=== PATIENT | male | born 1960 | race Caucasian/White ===

== ENCOUNTER 2018-04-03 06:30 | Day surgery (SDC) | payer OTHER ==
[2018-04-02 13:31] VITALS: BMI 46.0
--- NOTE | 2018-04-03 18:02 | OP ---
DATE OF PROCEDURE: 04/03/2018 PROCEDURE: Colonoscopy. PREPROCEDURE DIAGNOSES: Prior history of adenomatous polyps on colonoscopy in 2007 and hyperplastic polyps in 07/2012. POSTPROCEDURE DIAGNOSIS: Internal hemorrhoids, otherwise normal colonoscopy. RECOMMENDATIONS: Repeat colonoscopy in 5 years for prior history of polyps. ANESTHESIA: TIVA. PROCEDURE IN DETAIL: After the patient was informed of the risks, benefits, and possible complicatio ns of endoscopy including perforation, bleeding, reactions to medication and aspiration, informed con sent was obtained. The patient was brought to the endoscopy suite where he was sedated in gradual fa shion. Once he was comfortable, rectal examination was performed. The endoscope was advanced throug h anal canal through the colon and cecum which was identified by the ileocecal valve and appendiceal orifice. The prep was very good. Withdrawal time was 10 minutes. No polyps or masses were seen. I n retroflexed views in the rectum, there was a prominent internal hemorrhoids with some mild inflamma tion. The scope was then returned to forward position. The colon was desufflated and the scope was removed. The patient tolerated the procedure well without complications.
== END 2018-04-03 10:06 | disposition home or self-care (01) ==
LOC: SDC 06:30
PROVIDERS: ATTEND Internal Medicine Gastroenterology
PROC: 0DJD8ZZ Inspection of Lower Intestinal Tract, Via Natural or Artificial Opening Endoscopic (ICD-10-PCS; principal; 2018-04-03)
DX: Z12.11 Encounter for screening for malignant neoplasm of colon (principal); Z86.010 Personal history of colon polyps

== ENCOUNTER 2019-01-01 07:07 | Outpatient (CLI) | payer OTHER ==
--- NOTE | 2019-01-01 08:13 | ULT ---
ULTRASOUND TESTICULAR WITH DOPPLER: Date: 01/01/19 HISTORY: Pain. Hernia. COMPARISON: None. FINDINGS: Real-time Clemens scale with color Doppler and spectral analysis of the testicles performed. The skin of the scrotum is markedly thickened and symmetric over both testicles. The echotexture of both testicles is normal. Adequate vascularity. No significant hydrocele. Both epididymides are normal. No evidence for inguinal hernia. IMPRESSION: 1. Markedly thickened scrotal skin. Normal appearance of the testicles. 2. No evidence for inguinal hernia. POS: [facility]
== END 2019-01-01 07:08 | disposition home or self-care (01) ==
LOC: SCSULT 07:07
PROVIDERS: ATTEND Internal Medicine
DX: Q55.9 Congenital malformation of male genital organ, unspecified (principal)
CPT/HCPCS: 76870; 93976

== ENCOUNTER 2019-02-06 07:52 | Day surgery (SDC) | payer OTHER ==
[2019-02-05 14:07] VITALS: BMI 46.7
[2019-02-06] MEDS ORDERED: Bupivacaine/Epinephrine 0.25% 30 ML VIAL ONE (11:23)
[2019-02-06] MEDS ORDERED: Fentanyl 100 MCG/2 ML VIAL ONE ×3 (11:27→13:56)
[2019-02-06] MEDS ORDERED: PROPOFOL 200 MG/20 ML VIAL ONE (15:18)
[2019-02-06] MEDS ORDERED: ePHEDrine 50 MG/ML VIAL ONE (15:18)
[2019-02-06] MEDS ORDERED: Glycopyrrolate 0.2 MG/ML 5 ML SYRINGE ONE (15:18)
[2019-02-06] MEDS ORDERED: Dexamethasone 20 MG/5 ML VIAL ONE (15:18)
[2019-02-06] MEDS ORDERED: Lidocaine 1% PF 5 ML VIAL ONE (15:18)
[2019-02-06] MEDS ORDERED: PHENYLEPHRINE-NS 100 MCG/ML 10 ML SYRINGE ONE (15:18)
[2019-02-06] MEDS ORDERED: Ondansetron PF 4 MG/2 ML Vial ONE (15:18)
[2019-02-06] MEDS ORDERED: Rocuronium Bromide 10 MG/ML (10ML VIAL) ONE (15:18)
--- NOTE | 2019-02-07 09:15 | OP ---
DATE OF PROCEDURE: 02/06/2019 PREOPERATIVE DIAGNOSIS: Left inguinal hernia. POSTOPERATIVE DIAGNOSIS: Left inguinal hernia. PROCEDURE PERFORMED: Da Robbin laparoscopic left inguinal hernia repair with mesh. ANESTHESIA: General. ESTIMATED BLOOD LOSS: Minimal. COMPLICATIONS: None. SPECIMENS: None. FINDINGS: Left inguinal hernia. DESCRIPTION OF PROCEDURE: The patient was taken to the operating room and laid supine on the operating room table. After general anesthetic was obtained, Worley was placed. The abdomen was shaved, prepped, and draped in a sterile fashion. A curved incision was made above the umbilicus. Cautery was dissected down to and score the fascia. Abdominal cavity was entered bluntly using a Coretta clamp. Holding stitch of PDS placed on each side of the fascia. An 11 mm balloon trocar was placed and high-flow pneumoperitoneum was obtained. Left and right abdominal 8 mm robot trocars were placed. All ports were docked to the robot. Surgeon goes to the console. The peritoneum was taken down in the left groin. There was a left inguinal hernia. There was no right inguinal hernia. The preperitoneal space was dissected to the pubic tubercle medially to the anterior superior iliac crest laterally. The shelving edge of inguinal ligament was fully exposed. The indirect hernia was dissected out of the defect back up high onto the peritoneum. The cord structures were fully skeletonized. Bard 3DMax large mesh was brought into the sterile field. The M-labelled aspect was placed over pubic tubercle medially. The mesh was laid out flat to cover the femoral indirect and direct areas. The mesh was sewn via Vicryl suture to the pubic tubercle medially and to the posterior fascia laterally. The peritoneum was reapproximated using running 3-0 Stratafix. All port sites were infiltrated using local anesthetic. All ports were removed under camera visualization and pneumoperitoneum was let down. PDS was used to close the fascial defect above the umbilicus. All incisions were irrigated and closed using 4-0 Monocryl and Dermabond. The patient was sent to Recovery in stable condition. All instrument counts, needle counts, and lap counts were correct. Job ID: [id number]
== END 2019-02-06 15:30 | disposition home or self-care (01) ==
LOC: SDC 07:52
PROVIDERS: ATTEND Surgery
PROC: 0YU64JZ Supplement Left Inguinal Region with Synthetic Substitute, Percutaneous Endoscopic Approach (ICD-10-PCS; principal; 2019-02-06)
DX: K40.90 Unilateral inguinal hernia, without obstruction or gangrene, not specified as recurrent (principal); G25.81 Restless legs syndrome; G47.33 Obstructive sleep apnea (adult) (pediatric); K21.9 Gastro-esophageal reflux disease without esophagitis; E66.01 Morbid (severe) obesity due to excess calories; Z68.42 Body mass index [BMI] 45.0-49.9, adult; Z87.891 Personal history of nicotine dependence; Z79.82 Long term (current) use of aspirin; Z79.899 Other long term (current) drug therapy; Z99.89 Dependence on other enabling machines and devices; Z98.890 Other specified postprocedural states
CPT/HCPCS: C1781; J0690; J1100; J2001; J2405; J2704; J3010; J3490

== ENCOUNTER 2019-05-26 06:05 | Day surgery (SDC) | payer OTHER ==
[2019-05-23 13:13] VITALS: BMI 46.7
[2019-05-26 06:48] LABS: #Basophils 0.1 thou/uL (0.0-0.2); #Eosinphils 0.1 thou/uL (0.0-0.7); #Lymphocytes 0.8 thou/uL (1.20-3.40); #Monocytes 0.5 thou/uL (0.11-0.59); #Neutrophils 2.7 thou/uL (1.40-6.50); %Basophils 1.3 % (0.0-1.0); %Eosinophils 2.6 % (0.0-10.0); %Lymphocytes 19.1 % (21.0-51.0); %Monocytes 12.4 % (0.0-10.0); %Neutrophils 64.7 % (42.0-75.0); Hemoglobin 12.4 g/dL (14.0-18.0); Mean Corpuscular HGB CONC 30.8 g/dL (32.0-36.0); Mean Corpuscular Hemoglobin 24.2 pg (27.0-31.0); Mean Corpuscular Volume 78.4 fL (78.0-98.0); Mean Platelet Volume 6.9 fL (7.4-10.4); Platelet Count 284 thou/uL (130-400); RBC Distribution Width 14.3 % (11.5-14.5); Red Blood Cell (RBC) Count 5.13 mill/uL (4.70-6.10); White Blood Cell (WBC) Count 4.1 thou/uL (4.8-10.8)
[2019-05-26 07:05] LABS: Anion Gap 11 mmol/L (10-20); BUN (Urea Nitrogen) 10 mg/dL (8.4-25.7); Calc. Creatinine Clearance 173 mL/min (70-130); Calcium 8.8 mg/dL (7.8-10.44); Carbon Dioxide 28 mmol/L (22-29); Chloride 105 mmol/L (98-107); Estimated GFR-MDRD 76; Glucose 103 mg/dL (70-105); Potassium 4.5 mmol/L (3.5-5.1); Sodium 139 mmol/L (136-145)
[2019-05-26] MEDS ORDERED: PROPOFOL 20 ML ONE ×2 (08:33→08:37)
[2019-05-26] MEDS ORDERED: Lidocaine 1% (PF) 30 ML VIAL ONE (08:37)
--- NOTE | 2019-05-26 09:25 | OP ---
DATE OF PROCEDURE: 05/26/2019 PROCEDURE PERFORMED: Transesophageal echocardiogram. INDICATIONS: Crispin Rodriguez is a 58-year-old gentleman with paroxysmal atrial fibrillation. DESCRIPTION OF PROCEDURE: The patient was taken to the PACU. The patient was sedated by Anesthesiology. A transesophageal probe was placed into the distal esophagus and stomach. Echocardiographic images were obtained. The transesophageal probe was removed. FINDINGS: 1. Technically difficult study. 2. There appears to be normal left ventricular systolic function. 3. Left atrial enlargement. 4. The aortic and mitral valves were not well visualized. 5. No thrombus was noted in the left atrium or left atrial appendage. 6. Atherosclerotic debris in the descending aorta. IMPRESSION: No formed thrombus in the left atrium and left atrial appendage. Job ID: [id number]
--- NOTE | 2019-05-26 12:02 | OP ---
DATE OF PROCEDURE: 05/26/2019 PROCEDURE PERFORMED: Cardioversion. DESCRIPTION OF PROCEDURE: Mr. Rodriguez was brought to the PCU in the fasting state. He was sedated by anesthesia. He was given a transesophageal echo which showed no evidence of any intracardiac thrombi. Subsequently, he was given 200 joules of synchronized direct current energy and converted to sinus rhythm. CONCLUSION: Successful cardioversion. Job ID: [id number]
--- NOTE | 2019-05-26 16:24 | EKG ---
Test Reason : PREOP NATALIE/CARDIOVERS Blood Pressure : / mmHG Vent. Rate : 099 BPM Atrial Rate : 094 BPM P-R Int : 000 ms QRS Dur : 106 ms QT Int : 342 ms P-R-T Axes : 000 029 -03 degrees QTc Int : 438 ms Atrial fibrillation Nonspecific ST-T changes Abnormal ECG When compared with ECG of 05-FEB-2019 14:24, Atrial fibrillation has replaced Sinus rhythm Confirmed by DR. Braeden PADILLA (3) on 05/26/2019 4:24:25 PM Referred By: STEFFANY Confirmed By:DR. Braeden PADILLA
--- NOTE | 2019-05-26 16:28 | EKG ---
Test Reason : POST NATALIE/CARDIOVERSI Blood Pressure : / mmHG Vent. Rate : 062 BPM Atrial Rate : 062 BPM P-R Int : 168 ms QRS Dur : 104 ms QT Int : 396 ms P-R-T Axes : 022 014 011 degrees QTc Int : 401 ms Sinus rhythm with Premature atrial complexes Cannot rule out Anterior infarct , age undetermined Abnormal ECG When compared with ECG of 26-MAY-2019 06:59, (Unconfirmed) Sinus rhythm has replaced Atrial fibrillation Vent. rate has decreased BY [address] Braeden PADILLA (3) on 05/26/2019 4:28:14 PM Referred By: STEFFANY Confirmed By:DR. Braeden PADILLA
== END 2019-05-26 09:50 | disposition home or self-care (01) ==
LOC: SDC 06:05
PROVIDERS: ATTEND Internal Medicine Cardiovascular Disease
PROC: B24BZZ4 Ultrasonography of Heart with Aorta, Transesophageal (ICD-10-PCS; principal; 2019-05-26)
PROC: 5A2204Z Restoration of Cardiac Rhythm, Single (ICD-10-PCS; principal; 2019-05-26)
DX: I48.0 Paroxysmal atrial fibrillation (principal); I10 Essential (primary) hypertension; E78.00 Pure hypercholesterolemia, unspecified; E66.01 Morbid (severe) obesity due to excess calories; G47.33 Obstructive sleep apnea (adult) (pediatric); K21.9 Gastro-esophageal reflux disease without esophagitis; Z68.42 Body mass index [BMI] 45.0-49.9, adult; Z79.01 Long term (current) use of anticoagulants; Z79.899 Other long term (current) drug therapy; Z87.891 Personal history of nicotine dependence
CPT/HCPCS: 80048; 85025; 92960; 93005; 93010; 93312; J2001; J2704

== ENCOUNTER 2020-10-14 07:28 | Outpatient (CLI) | payer OTHER | END 2020-10-14 07:29 | disposition home or self-care (01) | LOC: SCSRAD 07:28 | PROVIDERS: ATTEND Internal Medicine | DX: M25.562 Pain in left knee (principal); M17.12 Unilateral primary osteoarthritis, left knee ==

== ENCOUNTER 2021-01-11 10:03 | Outpatient (CLI) | payer OTHER ==
[2019-02-05 14:42] LABS: #Eosinphils 0.2 thou/uL (0.0-0.7); #Lymphocytes 1.2 thou/uL (1.20-3.40); #Monocytes 0.5 thou/uL (0.11-0.59); #Neutrophils 2.9 thou/uL (1.40-6.50); %Basophils 0.8 % (0.0-1.0); %Lymphocytes 25.5 % (21.0-51.0); %Monocytes 10.2 % (0.0-10.0); %Neutrophils 59.4 % (42.0-75.0); Hemoglobin 14.4 g/dL (14.0-18.0); Mean Corpuscular HGB CONC 30.4 g/dL (32.0-36.0); Mean Corpuscular Hemoglobin 25.3 pg (27.0-31.0); Mean Corpuscular Volume 83.2 fL (78.0-98.0); Mean Platelet Volume 6.5 fL (7.4-10.4); Platelet Count 310 thou/uL (130-400); RBC Distribution Width 13.9 % (11.5-14.5); Red Blood Cell (RBC) Count 5.68 mill/uL (4.70-6.10); White Blood Cell (WBC) Count 4.8 thou/uL (4.8-10.8)
[2019-02-05 15:05] LABS: Anion Gap 11 mmol/L (10-20); BUN (Urea Nitrogen) 10 mg/dL (8.4-25.7); Calc. Creatinine Clearance 0 mL/min (70-130); Calcium 8.9 mg/dL (7.8-10.44); Carbon Dioxide 25 mmol/L (22-29); Chloride 103 mmol/L (98-107); Glucose 117 mg/dL (70-105); Potassium 4.2 mmol/L (3.5-5.1); Sodium 135 mmol/L (136-145)
[2021-01-11 10:44] LABS: #Eosinphils 0.1 10x3/uL (0.0-0.5); #Monocytes 0.3 10x3/uL (0.0-1.1); #Neutrophils 2.2 10x3/uL (1.5-8.4); %Basophils 0.3 % (0.0-2.0); %Lymphocytes 26.3 % (18.0-47.0); %Monocytes 9.5 % (0.0-10.0); %Neutrophils 61.6 % (40.0-75.0); Hemoglobin 15.2 g/dL (13.5-17.5); Mean Corpuscular Hemoglobin 30.5 pg (27.0-33.0); Mean Corpuscular Volume 92.2 fl (81.2-95.1); Mean Platelet Volume 9.1 fl (7.4-10.4); Platelet Count 235 10x3/uL (150-450); RBC Distribution Width 13.2 % (11.5-14.5); Red Blood Cell (RBC) Count 4.99 10x6/uL (4.32-5.72); White Blood Cell (WBC) Count 3.6 10x3/uL (3.5-10.5)
[2021-01-11 10:55] LABS: Anion Gap 13 mmol/L (10-20); BUN (Urea Nitrogen) 14 mg/dL (8.4-25.7); Calc. Creatinine Clearance 0 mL/min (70-130); Calcium 9.4 mg/dL (7.8-10.44); Carbon Dioxide 25 mmol/L (22-29); Chloride 107 mmol/L (98-107); Glucose 94 mg/dL (70-105); Potassium 4.6 mmol/L (3.5-5.1); Sodium 140 mmol/L (136-145)
== END 2021-01-11 10:04 | disposition home or self-care (01) ==
LOC: LABBT 10:03
PROVIDERS: ATTEND Surgery
DX: Z01.818 Encounter for other preprocedural examination (principal); K40.90 Unilateral inguinal hernia, without obstruction or gangrene, not specified as recurrent
CPT/HCPCS: 80048; 85025; 93005; 93010

== ENCOUNTER 2021-01-14 11:55 | Day surgery (SDC) | payer OTHER ==
[2021-01-13 12:09] VITALS: BMI 40.1
[2021-01-14] MEDS ORDERED: Bupivacaine 0.25% HCL 30 ML VIAL ONE (14:35)
[2021-01-14] MEDS ORDERED: Bupivacaine PF 0.5% 30 ML VIAL ONE (14:35)
[2021-01-14] MEDS ORDERED: EPINEPHrine 1 MG/ML AMP ONE (14:35)
[2021-01-14] MEDS ORDERED: Fentanyl 100 MCG/2 ML VIAL ONE ×3 (14:39→17:03)
[2021-01-14] MEDS ORDERED: Lidocaine 1% w/Epinephrine 1:100K 20 ML VIAL ONE (15:09)
[2021-01-14] MEDS ORDERED: Dexamethasone 20 MG/5 ML VIAL ONE (15:21)
[2021-01-14] MEDS ORDERED: Lidocaine 1% PF 5 ML VIAL ONE (15:21)
[2021-01-14] MEDS ORDERED: PROPOFOL 200 MG/20 ML VIAL ONE (15:21)
[2021-01-14] MEDS ORDERED: Ondansetron PF 4 MG/2 ML Vial ONE (15:21)
[2021-01-14] MEDS ORDERED: HYDROcodone/Acetaminophen 5/325 mg Tablet ONE (18:11)
== END 2021-01-14 19:05 | disposition home or self-care (01) ==
LOC: SDC 11:55
PROVIDERS: ATTEND Surgery
PROC: 0YU60JZ Supplement Left Inguinal Region with Synthetic Substitute, Open Approach (ICD-10-PCS; principal; 2021-01-14)
DX: K40.91 Unilateral inguinal hernia, without obstruction or gangrene, recurrent (principal); K21.9 Gastro-esophageal reflux disease without esophagitis; I48.91 Unspecified atrial fibrillation; E66.01 Morbid (severe) obesity due to excess calories; Z68.41 Body mass index [BMI] 40.0-44.9, adult; Z79.01 Long term (current) use of anticoagulants; Z79.899 Other long term (current) drug therapy; Z87.891 Personal history of nicotine dependence; Z87.19 Personal history of other diseases of the digestive system
CPT/HCPCS: A4306; C1781; J0171; J0690; J1100; J2405; J2704; J3010; S0020

== ENCOUNTER 2021-03-29 11:57 | Outpatient (CLI) | payer OTHER ==
[2021-03-29 12:58] LABS: #Eosinphils 0.1 10x3/uL (0.0-0.5); #Monocytes 0.5 10x3/uL (0.0-1.1); #Neutrophils 2.5 10x3/uL (1.5-8.4); %Basophils 0.7 % (0.0-2.0); %Eosinophils 2.5 % (0.0-6.0); %Lymphocytes 28.5 % (18.0-47.0); %Monocytes 10.4 % (0.0-10.0); %Neutrophils 57.4 % (40.0-75.0); Hemoglobin 12.7 g/dL (13.5-17.5); Mean Corpuscular HGB CONC 32.8 g/dL (32.0-36.0); Mean Corpuscular Hemoglobin 30.3 pg (27.0-33.0); Mean Corpuscular Volume 92.4 fl (81.2-95.1); Platelet Count 278 10x3/uL (150-450); Red Blood Cell (RBC) Count 4.19 10x6/uL (4.32-5.72); White Blood Cell (WBC) Count 4.4 10x3/uL (3.5-10.5)
[2021-03-29 13:08] LABS: Prothrombin Time 10.9 sec (9.5-12.1)
[2021-03-29 13:09] LABS: Anion Gap 12 mmol/L (10-20); BUN (Urea Nitrogen) 18 mg/dL (8.4-25.7); Calc. Creatinine Clearance 0 mL/min (70-130); Calcium 9.7 mg/dL (7.8-10.44); Carbon Dioxide 26 mmol/L (22-29); Chloride 106 mmol/L (98-107); Glucose 93 mg/dL (70-105); Potassium 4.3 mmol/L (3.5-5.1); Sodium 140 mmol/L (136-145)
[2021-03-30 11:14] LABS: SARS-CoV-2 PCR by NAA Not Detected (NotDetected)
== END 2021-03-29 11:58 | disposition home or self-care (01) ==
LOC: LABBT 11:57
PROVIDERS: ATTEND Orthopaedic Surgery
DX: Z01.818 Encounter for other preprocedural examination (principal); S46.012A Strain of muscle(s) and tendon(s) of the rotator cuff of left shoulder, initial encounter; Z20.822 Contact with and (suspected) exposure to COVID-19
CPT/HCPCS: 80048; 85025; 85610; 93005; 93010; U0003; U0005

== ENCOUNTER 2021-03-31 07:24 | Day surgery (SDC) | payer OTHER ==
[2021-03-30 10:46] VITALS: BMI 39.7
[2021-03-31] MEDS ORDERED: Fentanyl 100 MCG/2 ML VIAL ONE ×2 (08:02→08:35)
[2021-03-31] MEDS ORDERED: Midazolam HCl 2 mg/2 ml Vial ONE (08:02)
[2021-03-31] MEDS ORDERED: Rocuronium Bromide 10 MG/ML (10ML VIAL) ONE (08:50)
[2021-03-31] MEDS ORDERED: Dexamethasone 20 MG/5 ML VIAL ONE (08:50)
[2021-03-31] MEDS ORDERED: Glycopyrrolate 0.2 MG/ML 5 ML SYRINGE ONE (08:50)
[2021-03-31] MEDS ORDERED: Ondansetron PF 4 MG/2 ML Vial ONE (08:50)
[2021-03-31] MEDS ORDERED: ePHEDrine 50 MG/ML VIAL ONE (08:50)
[2021-03-31] MEDS ORDERED: Ropivacaine 0.5% HCl/PF (150 MG/30 ML VIAL) ONE (08:50)
[2021-03-31] MEDS ORDERED: PHENYLEPHRINE-NS 100 MCG/ML 10 ML SYRINGE ONE (08:50)
[2021-03-31] MEDS ORDERED: PROPOFOL 200 MG/20 ML VIAL ONE (08:50)
[2021-03-31] MEDS ORDERED: Ketorolac Tromethamine 30 MG/ML VIAL ONE (08:50)
[2021-03-31] MEDS ORDERED: Ondansetron PF 4 MG/2 ML Vial IVP PRN (09:00)
[2021-03-31] MEDS ORDERED: Promethazine HCl 25 MG/ML VIAL IM PRN (09:00)
[2021-03-31] MEDS ORDERED: Ropivacaine 0.2% 550 ML 550 ML NERVE BLCK SCH (09:00)
[2021-03-31] MEDS ORDERED: traMADol HCl 50 MG TAB PO PRN ×2 (09:00)
[2021-03-31] MEDS ORDERED: Zolpidem Tartrate 5 MG TAB PO PRN (09:00)
[2021-03-31] MEDS ORDERED: Ketorolac Tromethamine 30 MG/ML VIAL IVP PRN (09:00)
[2021-03-31] MEDS ORDERED: HYDROcodone/Acetaminophen 10/325 mg Tablet PO PRN ×2 (09:00)
[2021-03-31] MEDS ORDERED: Lidocaine 1% w/Epinephrine 1:100K 20 ML VIAL ONE (09:18)
== END 2021-03-31 13:40 | disposition home or self-care (01) ==
LOC: SDC 07:24
PROVIDERS: ATTEND Orthopaedic Surgery
PROC: 0LS40ZZ Reposition Left Upper Arm Tendon, Open Approach (ICD-10-PCS; principal; 2021-03-31)
PROC: 3E0T3BZ Introduction of Anesthetic Agent into Peripheral Nerves and Plexi, Percutaneous Approach (ICD-10-PCS; principal; 2021-03-31)
PROC: 0LQ24ZZ Repair Left Shoulder Tendon, Percutaneous Endoscopic Approach (ICD-10-PCS; principal; 2021-03-31)
PROC: 0RHK04Z Insertion of Internal Fixation Device into Left Shoulder Joint, Open Approach (ICD-10-PCS; principal; 2021-03-31)
DX: S46.012A Strain of muscle(s) and tendon(s) of the rotator cuff of left shoulder, initial encounter (principal); S46.112A Strain of muscle, fascia and tendon of long head of biceps, left arm, initial encounter; I48.91 Unspecified atrial fibrillation; G25.81 Restless legs syndrome; G47.33 Obstructive sleep apnea (adult) (pediatric); K21.9 Gastro-esophageal reflux disease without esophagitis; E66.01 Morbid (severe) obesity due to excess calories; Z68.39 Body mass index [BMI] 39.0-39.9, adult; Z87.891 Personal history of nicotine dependence; Z79.01 Long term (current) use of anticoagulants; Z79.899 Other long term (current) drug therapy; W19.XXXA Unspecified fall, initial encounter
CPT/HCPCS: A4306; C1713; J0690; J1100; J1885; J2250; J2405; J2704; J2795; J3010; J3490

== ENCOUNTER 2021-06-17 08:17 | Outpatient (CLI) | payer OTHER ==
[2021-06-17 11:14] LABS: Hemoglobin 14.4 g/dL (13.5-17.5); Mean Corpuscular HGB CONC 32.3 g/dL (32.0-36.0); Mean Corpuscular Hemoglobin 29.6 pg (27.0-33.0); Mean Corpuscular Volume 91.8 fl (81.2-95.1); Mean Platelet Volume 9.2 fl (7.4-10.4); Platelet Count 255 10x3/uL (150-450); RBC Distribution Width 13.2 % (11.5-14.5); Red Blood Cell (RBC) Count 4.86 10x6/uL (4.32-5.72); White Blood Cell (WBC) Count 3.2 10x3/uL (3.5-10.5)
[2021-06-17 11:27] LABS: Anion Gap 13 mmol/L (10-20); BUN (Urea Nitrogen) 12 mg/dL (8.4-25.7); Calc. Creatinine Clearance 0 mL/min (70-130); Calcium 8.9 mg/dL (7.8-10.44); Carbon Dioxide 26 mmol/L (22-29); Chloride 104 mmol/L (98-107); Glucose 84 mg/dL (70-105); Potassium 4.5 mmol/L (3.5-5.1); Sodium 138 mmol/L (136-145)
[2021-06-17 23:16] LABS: SARS-CoV-2 PCR by NAA Not Detected (NotDetected)
== END 2021-06-17 08:18 | disposition home or self-care (01) ==
LOC: LABBT 08:17
PROVIDERS: ATTEND Internal Medicine Cardiovascular Disease
DX: Z01.812 Encounter for preprocedural laboratory examination (principal); I48.0 Paroxysmal atrial fibrillation; Z20.822 Contact with and (suspected) exposure to COVID-19
CPT/HCPCS: 80048; 85027; 85610; U0003; U0005

== ENCOUNTER 2021-06-21 08:41 | Day surgery (SDC) | payer OTHER ==
[2021-06-20 09:16] VITALS: BMI 40.4
[2021-06-21] MEDS ORDERED: Heparin 25,000 units/D5W 500 ML ONE (09:04)
[2021-06-21] MEDS ORDERED: Heparin 10,000 UNITS/ 10 ML VIAL ONE ×2 (09:04→13:54)
[2021-06-21] MEDS ORDERED: Fentanyl 100 MCG/2 ML VIAL ONE ×2 (11:01→14:41)
[2021-06-21] MEDS ORDERED: Lidocaine 1% PF 5 ML VIAL ONE (11:32)
[2021-06-21] MEDS ORDERED: Ondansetron PF 4 MG/2 ML Vial ONE (11:32)
[2021-06-21] MEDS ORDERED: Rocuronium Bromide 10 MG/ML (10ML VIAL) ONE (11:32)
[2021-06-21] MEDS ORDERED: Glycopyrrolate 0.2 MG/ML 5 ML SYRINGE ONE (11:32)
[2021-06-21] MEDS ORDERED: Dexamethasone 20 MG/5 ML VIAL ONE (11:32)
[2021-06-21] MEDS ORDERED: Succinylcholine 200 MG/10 ml SYRINGE FS ONE (11:32)
[2021-06-21] MEDS ORDERED: PROPOFOL 200 MG/20 ML VIAL ONE (11:32)
[2021-06-21] MEDS ORDERED: Protamine Sulfate 50 MG/5 ML VIAL ONE (15:16)
== END 2021-06-21 18:33 | disposition home or self-care (01) ==
LOC: CCL 08:41
PROVIDERS: ATTEND Internal Medicine Cardiovascular Disease
PROC: 5A2204Z Restoration of Cardiac Rhythm, Single (ICD-10-PCS; principal; 2021-06-21)
PROC: B244ZZ3 Ultrasonography of Right Heart, Intravascular (ICD-10-PCS; principal; 2021-06-21)
PROC: 02K83ZZ Map Conduction Mechanism, Percutaneous Approach (ICD-10-PCS; principal; 2021-06-21)
PROC: B24CZZ4 Ultrasonography of Pericardium, Transesophageal (ICD-10-PCS; principal; 2021-06-21)
PROC: B246ZZ4 Ultrasonography of Right and Left Heart, Transesophageal (ICD-10-PCS; principal; 2021-06-21)
PROC: 02583ZZ Destruction of Conduction Mechanism, Percutaneous Approach (ICD-10-PCS; principal; 2021-06-21)
DX: I48.0 Paroxysmal atrial fibrillation (principal); I11.9 Hypertensive heart disease without heart failure; G47.33 Obstructive sleep apnea (adult) (pediatric); D50.9 Iron deficiency anemia, unspecified; E78.5 Hyperlipidemia, unspecified; K21.9 Gastro-esophageal reflux disease without esophagitis; Z79.01 Long term (current) use of anticoagulants; Z79.899 Other long term (current) drug therapy
CPT/HCPCS: 85347; 93005; 93312; 93613; 93656; 93657; 93662; C1732; C1759; C1776; C1894; C2630; J1100; J1644; J2405; J2704; J2720; J3010

== ENCOUNTER 2024-08-05 08:41 | Outpatient (CLI) | payer OTHER | END 2024-08-05 08:42 | disposition home or self-care (01) | LOC: CT 08:41 | PROVIDERS: ATTEND Orthopaedic Surgery | DX: M17.12 Unilateral primary osteoarthritis, left knee (principal) ==

== ENCOUNTER 2025-02-17 08:46 | Observation (INO) | payer OTHER ==
[2025-02-10 08:25] VITALS: BMI 41.8
[2025-02-17] MEDS ORDERED: Bupivacaine 0.25% HCL 30 ML VIAL ONE (09:14)
[2025-02-17] MEDS ORDERED: Ropivacaine 0.5% HCl/PF (150 MG/30 ML VIAL) ONE (09:17)
[2025-02-17] MEDS ORDERED: Tranexamic Acid 1,000 MG/10 ML VIAL ONE (09:32)
[2025-02-17] MEDS ORDERED: VANCOMYCIN 2 GRAM/400 ML BAG ONE (09:33)
[2025-02-17] MEDS ORDERED: PROPOFOL 40 ML ONE (09:38)
[2025-02-17] MEDS ORDERED: fentaNYL PF 100 MCG/2 ML SYRINGE ONE (09:38)
[2025-02-17] MEDS ORDERED: CEFAZOLIN 2 GM VIAL ONE (10:01)
[2025-02-17] MEDS ORDERED: HYDROcodone/Acetaminophen 10/325 mg Tablet PO PRN (10:15)
[2025-02-17] MEDS ORDERED: Ondansetron PF 4 MG/2 ML Vial IVP PRN ×2 (10:15→18:27)
[2025-02-17] MEDS ORDERED: Ropivacaine 0.2% 550 ML 550 ML NERVE BLCK SCH (10:15)
[2025-02-17] MEDS ORDERED: Lidocaine 1% PF 5 ML VIAL ONE (10:25)
[2025-02-17] MEDS ORDERED: Ondansetron PF 4 MG/2 ML Vial ONE (12:07)
[2025-02-17] MEDS ORDERED: Ketorolac Tromethamine 30 MG (1 mL) VIAL ONE (12:11)
[2025-02-17] MEDS ORDERED: HYDROmorphone 0.5 MG/0.5 ML SYRINGE ONE ×4 (12:54→17:54)
[2025-02-17] MEDS ORDERED: diphenhydrAMINE 25 MG CAP PO PRN (18:27)
[2025-02-17] MEDS ORDERED: Acetaminophen 325 MG TAB PO PRN (18:27)
[2025-02-17] MEDS: Ketorolac Tromethamine 30 MG (1 mL) VIAL IVP SCH (18:35)
[2025-02-17] MEDS: Aspirin 81 mg Enteric Coated Tablet PO SCH (20:03)
[2025-02-17] MEDS: Multivitamin W/ Minerals 1 TAB PO SCH (20:03)
[2025-02-17] MEDS: Pantoprazole 40 MG DR.TAB PO SCH (20:04)
[2025-02-17] MEDS: Senokot S 8.6-50 MG TAB PO SCH (20:04)
[2025-02-17] MEDS: Ferrous Gluconate 324 MG TAB PO SCH (20:04)
[2025-02-17] MEDS: Carvedilol 3.125 MG TAB PO SCH (20:05)
[2025-02-17] MEDS: HYDROcodone/Acetaminophen 10/325 mg Tablet PO PRN (23:45)
[2025-02-18 07:09] LABS: Hematocrit 32.0 % (42.0-52.0); Hemoglobin 10.4 g/dL (14.0-18.0); Mean Corpuscular Hemoglobin 29.7 pg (27.0-31.0); Mean Corpuscular Volume 91.4 fL (78.0-98.0); Platelet Count 205 10x3/uL (130-400); Red Blood Cell (RBC) Count 3.50 mill/uL (4.70-6.10); White Blood Cell (WBC) Count 10.96 10x3/uL (4.8-10.8)
[2025-02-18] MEDS: Aspirin 81 mg Enteric Coated Tablet PO SCH (08:35)
[2025-02-18] MEDS: Multivitamin W/ Minerals 1 TAB PO SCH (08:35)
[2025-02-18] MEDS: Pantoprazole 40 MG DR.TAB PO SCH (08:36)
[2025-02-18] MEDS: Ferrous Gluconate 324 MG TAB PO SCH (08:36)
[2025-02-18] MEDS: Senokot S 8.6-50 MG TAB PO SCH (08:38)
[2025-02-18] MEDS: Carvedilol 3.125 MG TAB PO SCH (08:39)
[2025-02-18 11:23] VITALS: BP 125/76; TEMP 98.2
== END 2025-02-18 13:00 | disposition home or self-care (01) ==
LOC: SDC 08:46 → SURG A 18:26
PROVIDERS: ADMIT Orthopaedic Surgery; ATTEND Orthopaedic Surgery
PROC: 3E0T3BZ Introduction of Anesthetic Agent into Peripheral Nerves and Plexi, Percutaneous Approach (ICD-10-PCS; principal; 2025-02-17)
PROC: 0SRC0JZ Replacement of Right Knee Joint with Synthetic Substitute, Open Approach (ICD-10-PCS; principal; 2025-02-17)
DX: M17.11 Unilateral primary osteoarthritis, right knee (principal); I10 Essential (primary) hypertension; I48.91 Unspecified atrial fibrillation; G47.33 Obstructive sleep apnea (adult) (pediatric); Z96.652 Presence of left artificial knee joint; Z90.89 Acquired absence of other organs; Z98.890 Other specified postprocedural states
CPT/HCPCS: 36415; 85027; A4306; C1713; C1776; C1889; J0169; J0665; J1100; J1171; J1885; J2250; J2405; J2704; J2795; J3010; J3375